=== PATIENT | male | born 1945 | race Caucasian/White ===

== ENCOUNTER → 2018-02-14 | Outpatient (CLI) | payer MEDICARE, OTHER ==
--- NOTE | 2018-02-14 11:10 | DIREP ---
PROCEDURE:CHEST 2 VIEWS COMPARISON:[facility], CR, XRAY CHEST 2 VWS, 07/13/2015, 10:07 AM. INDICATIONS:Z85.820 PERSONAL HX OF MALIGNANT MELANOMA OF SKIN FINDINGS: LUNGS/PLEURA:No significant pulmonary parenchymal abnormalities. No effusions. VASCULATURE:Normal. Unremarkable pulmonary vasculature. CARDIAC:Normal. No cardiac silhouette abnormality or cardiomegaly. MEDIASTINUM:Normal. No visible mass or adenopathy. BONES:Normal. No fracture or visible bony lesion. OTHER:Axillary surgical clips CONCLUSION: 1. No acute cardiopulmonary abnormality. Dictated by: Blane Taveras Jr. on 02/14/2018 at 11:05 AM
== END | disposition home or self-care (01) ==
LOC: RAD 09:52
PROVIDERS: ATTEND Internal Medicine
DX: I10 Essential (primary) hypertension (principal); G47.33 Obstructive sleep apnea (adult) (pediatric); Z85.820 Personal history of malignant melanoma of skin
CPT/HCPCS: 71046

== ENCOUNTER → 2021-01-06 | Outpatient (CLI) | payer MEDICARE, OTHER ==
--- NOTE | 2021-01-06 12:02 | DIREP ---
PROCEDURE:XR SPINE CERVICAL 2 OR 3 VIEWS COMPARISON:None. INDICATIONS:CERVICALGIA TECHNIQUE:AP, lateral, and dens views of the cervical spine are provided. FINDINGS: Multilevel anterior osteophyte formation , most pronounced C6-C7. Concomitant disc space narrowing, advances C6-C7 and C7-T1. There is fusion of C2-C3 and partial fusion of C3-C4. Concomitant multilevel bilateral facet arthropathy and uncovertebral joint hypertrophy . Normal AP alignment. Degenerate changes are resulting in varying degrees of bony encroachment of the bilateral neural foramina. No acute fracture. No prevertebral soft tissue swelling. CONCLUSION: Multilevel degenerative changes, without acute fracture. Dictated by: Yonas Wallace DO on 01/06/2021 at 11:59 AM
--- NOTE | 2021-01-06 14:29 | DIREP ---
PROCEDURE:CHEST 2 VIEWS COMPARISON:[facility], CR, XRAY CHEST 2 VWS, 02/14/2018, 10:02 AM. INDICATIONS:EDEMA, PERSONAL HISTORY OF MALIGNANT MELANOMA OF SKIN FINDINGS: LUNGS/PLEURA:No significant pulmonary parenchymal abnormalities. No effusions. VASCULATURE:Normal. Unremarkable pulmonary vasculature. CARDIAC:Normal. No cardiac silhouette abnormality or cardiomegaly. MEDIASTINUM:Normal. No visible mass or adenopathy. BONES:Mild degenerative changes of the spine. OTHER:Surgical clips within the right axillary region. CONCLUSION:Stable chest without acute cardiopulmonary abnormality. Dictated by: Omid Lopez M.D. on 01/06/2021 at 02:27 PM
== END | disposition home or self-care (01) ==
LOC: RAD 10:08
PROVIDERS: ATTEND Internal Medicine
DX: M47.812 Spondylosis without myelopathy or radiculopathy, cervical region (principal); R60.9 Edema, unspecified; M54.2 Cervicalgia; Z85.820 Personal history of malignant melanoma of skin
CPT/HCPCS: 71046; 72040